=== PATIENT | male | born 1965 | race Caucasian/White ===

== ENCOUNTER 2022-05-28 09:26 | Emergency (ER) | payer BC, SELFPAY ==
[2022-05-28 09:52] VITALS: BP 142/79; PULSE 70; RESP 18; TEMP 36.8; O2SAT 96; BMI 35.4
--- NOTE | 2022-05-28 10:33 | ED_ITS ---
HPI - Abdominal Pain General Time Seen by Provider: 10:00 Date Seen: 05/28/22 Chief Complaint: Abdominal Pain Stated Complaint: Stomach cramps, nauseous Time Seen by Provider: 05/28/22 09:54 Source: patient, family and RN notes reviewed Mode of arrival: ambulatory Limitations: no limitations History of Present Illness HPI narrative: The patient is a very pleasant 57-year-old gentleman with a history of cardiac stents placed last year and no abdominal surgeries who comes to the emergency room for evaluation of abdominal pain. Patient notes that he awoke from sleep last night with abdominal pain that he describes is intense cramping. He had 1 episode of vomiting and seem to improve and went back to bed. He has had further episode of vomiting this morning. He does feel that he has been slightly bloated over the past week but has not been experiencing any diarrhea or constipation. He also denies fever but notes that when the pain is intense he does feel like he is chilled and does have some sweating. Patient has not experienced anything like this in the past. He has not noticed any blood in his stool and as previously noted no history of abdominal surgeries. He does admit that he has heartburn frequently. He also agrees that he had some discomfort in his upper substernal chest area earlier this morning not associated with shortness of breath. He has no pain there at this time. Patient did have a small nonbloody bowel movement earlier this morning. No diarrhea. MD elicited complaint: abdominal pain Pertinent past history: none Onset (ago): hour(s) Pain Consistency: intermittent Location: diffuse Severity: moderate Quality: cramping Associated symptoms: nausea and vomiting Related Data Home Medications Medication Instructions Recorded Confirmed atorvastatin 40 mg tablet mg 05/28/22 lisinopril 20 mg tablet mg 05/28/22 metoprolol tartrate 25 mg tablet mg 05/28/22 vilazodone 40 mg tablet (Viibryd) mg 05/28/22 Allergies Allergy/AdvReac Type Severity Reaction Status Date / Time No Known Drug Allergies Allergy Verified 05/28/22 09:59 Review of Systems Status of ROS Reports: 10 or more systems reviewed and unremarkable except as noted in History and below Const Denies: fever, change in weight or fatigue ENMT Denies: throat pain Cardio Reports: chest pain; Denies: shortness of breath with exertion Resp Denies: shortness of breath GI Reports: abdominal pain, nausea, vomiting and heartburn; Denies: coffee grounds in vomit Denies: painful urination Musculo Denies: back pain Endo Denies: fatigue PFSH [facility] Social History Smoking Status: Former smoker Do you use any of these nicotine containing products: None and E-Cigarettes Second hand tobacco smoke exposure: No How often do you have a drink containing alcohol: 2-3 times a week How many standard drinks containing alcohol do you have on a typical day: 1 or 2 How often do you have six or more drinks on one occasion: Never AUDIT-C Alcohol total score: 3 Non-prescribed substance use: denies use Exam Const: Vital Signs, click to edit/add: Vital Signs - 24 hr 05/28/22 09:52 05/28/22 14:04 Temperature 98.2 F Pulse Rate [Right Radial] 70 58 L Respiratory Rate 18 16 Blood Pressure [Ri ght Upper Arm] 142/79 H 117/56 L Pulse Oximetry 96 95 Documenting provider has reviewed patient's vital signs: yes Common normals: no apparent distress General appearance: cooperative and other (Mild discomfort occasionally.) Nutritional appearance: overweight HENMT: Common normals: normocephalic Head and scalp: normocephalic Eye: Common normals: PERRL General eye: normal appearance of both eyes Pupil: PERRL Resp: Common normals: normal respiratory effort and clear to auscultation bilaterally Auscultation: clear to auscultation bilaterally Cardio: Common normals: regular rate and regular rhythm Rate: regular rate Rhythm: regular rhythm GI: Common normals: soft to palpation Auscultation: hypoactive bowel sounds; no high-pitched bowel sounds Palpation: soft Other: Mild diffuse discomfort in the upper aspect of the abdomen. No rebound tenderness right lower quadrant. Extremity: Common normals: normal to inspection Skin: Common normals: no rashes or lesions noted General skin exam: no rashes or lesions noted Course Course Hospital Course: This appears to be sudden onset of abdominal discomfort almost colicky in nature per patient's description. It has included 2 episodes of vomiting. Possibilities include biliary colic, colitis, bowel obstruction, atypical angina . We will obtain an EKG, troponin as well as CBC, comprehensive panel and urinalysis. Plan with normal creatinine is to go forward with an abdominal and pelvis CT with contrast. Will give patient Toradol 15 mg IV and Zofran 4 mg IV. Reevaluation(s) Reevaluation #1: Patient is noted to have a normal white count of 9.52 with slightly elevated CRP of 1.1. Creatinine normal at 1.0 and potassium 4.4. Consultations Consultation #1: Surgical consultation with Dr. De Oliveira. Agrees with attempts at management with pain meds at home. Does suggest small-bowel follow-through with his primary MD if he has improvement. Vital Signs Vital signs: Initial Vital Signs Temperature 98.2 F 05/28/22 09:52 Temperature Source Temporal Artery Scan 05/28/22 09:52 Pulse Rate 70 05/28/22 09:52 Pulse Rhythm 05/28/22 09:52 Respiratory Rate 18 05/28/22 09:52 Blood Pressure 142/79 H 05/28/22 09:52 Blood Pressure Mean 100 05/28/22 09:52 Blood Pressure Position Sitting 05/28/22 09:52 Pulse Oximetry 96 05/28/22 09:52 Oxygen Delivery Method 05/28/22 09:52 Vital Signs Temperature 98.2 F 05/28/22 09:52 Pulse Rate 70 05/28/22 09:52 Respiratory Rate 18 05/28/22 09:52 Blood Pressure 142/79 H 05/28/22 09:52 Pulse Oximetry 96 05/28/22 09:52 Temperature 98.2 F 05/28/22 09:52 Pulse Rate 58 L 05/28/22 14:04 Respiratory Rate 16 05/28/22 14:04 Blood Pressure 117/56 L 05/28/22 14:04 Pulse Oximetry 95 05/28/22 14:04 MDM - Abdominal Pain MDM Narrative Medical decision making narrative: 1. Partial small bowel obstruction-no evidence of mass, colitis, enteritis for reason for obstruction. Following Toradol and Zofran IV as well as 1 L of saline patient is feeling better and able to tolerate water without difficulty. I did consult with our surgeon and at this time patient will be discharged home. Oxycodone 5 mg 1/2-1 tab may be utilized for pain control every 6 hours as needed. Would recommend a stool softener such as Colace as he is surely to be susceptible to constipation. Zofran ODT 4 mg may be utilized for nausea as needed. 2. GERD-patient does have a history of heartburn. He is complaining of some heartburn here. We have ruled him out in terms of negative EKGs and negative troponins. Will give some Maalox at this time. 2. Disposition-home. Patient will return for fever, increased vomiting or increasing pain. If he is improved our surgeon suggest a small bowel polyp follow-through as an outpatient with his primary MD. Differential Diagnosis Differential diagnosis: Likely abdominal pain, acute appendicitis, constipation, diverticulitis, gastroenteritis, pancreatitis and small bowel obstruction Medical Records Attestation: I reviewed the patient's medical records. Lab Data Attestation: I reviewed the patient's lab results. Lab results narrative: White count is reassuring, troponin is negative. CRP slightly elevated at 1.1. Normal creatinine. Labs: Lab Results 05/28/22 05/28/22 05/28/22 Range/Units 10:40 10:40 10:40 WBC 9.52 (4.50-11.00) K/uL RBC 5.69 (4.30-5.90) m/uL Hgb 15.6 (13.5-17.5) gm/dL Hct 46.9 (37.0-53.0) % MCV 82 (80-100) fL MCH 27 (26-34) pg MCHC 33 (32-36) gm/dL RDW Coeff of Hoa 13.4 (11.5-15.5) % Plt Count 245 (140-440) K/uL Neut % (Auto) 72.8 H (42.0-72.0) % Lymph % (Auto) 12.4 L (20-44) % [place] % (Auto) 12.9 H (0.0-11.0) % Eos % (Auto) 1.5 (0.0-7.0) % Baso % (Auto) 0.3 (0.0-3.0) % Neut # (Auto) 6.90 (1.7-7.0) K/uL Lymph # (Auto) 1.20 (0.90-2.90) K/uL [place] # (Auto) 1.20 H (0.00-0.90) K/UL Eos # (Auto) 0.14 (0.00-0.50) K/uL Baso # (Auto) 0.03 (0.00-0.30) K/uL Abs Immat Gran (auto) 0.01 (0.00-0.30) K/uL Sodium 141 (135-149) mmol/L Potassium 4.4 (3.6-5.1) mmol/L Chloride 106 (96-114) mmol/L Carbon Dioxide 27 (20-32) mmol/L BUN 18 (7-30) mg/dL Creatinine 1.0 (0.5-1.5) mg/dL Estimated Creat Clear 82.48 Glucose 114 (60-115) mg/dL Calcium 9.4 (8.4-10.6) mg/dL Total Bilirubin 0.8 (0.1-1.5) mg/dL AST 28 (12-35) U/L ALT 23 (4-50) U/L Alkaline Phosphatase 79 (40-150) U/L Troponin I < 0.01 L (0.01-0.04) ng/mL C-Reactive Protein 1.1 H (0.5-1.0) mg/dL Total Protein 7.6 (6.0-8.3) g/dL Albumin 4.7 (3.3-5.0) g/dL Urine Color Yellow (Yellow) Urine Appearance Clear (Clear) Urine pH 8.5 (5.0-8.5) Ur Specific Logan 1.015 (1.000-1.030) Urine Protein 1+ A (Negative) Urine Glucose (UA) Negative (Negative) Urine Ketones Trace A (Negative) Urine Blood Negative (Negative) Urine Nitrite Negative (Negative) Urine Bilirubin 1+ A (Negative) Urine Urobilinogen 2.0 A (0.2-1.0) Ur Leukocyte Esterase Negative (Negative) Urine RBC 0-2 (0-2) Urine WBC 0-2 (0-5) Ur Squamous Epith Cells Few (None-Few) Urine Bacteria None (None) Urine Mucus Few A (None) Urine Trichomonas TNP POC Troponin I (0.01-0.04) ng/ml 05/28/22 Range/Units 15:40 WBC (4.50-11.00) K/uL RBC (4.30-5.90) m/uL Hgb (13.5-17.5) gm/dL Hct (37.0-53.0) % MCV (80-100) fL MCH (26-34) pg MCHC (32-36) gm/dL RDW Coeff of Hoa (11.5-15.5) % Plt Count (140-440) K/uL Neut % (Auto) (42.0-72.0) % Lymph % (Auto) (20-44) % [place] % (Auto) (0.0-11.0) % Eos % (Auto) (0.0-7.0) % Baso % (Auto) (0.0-3.0) % Neut # (Auto) (1.7-7.0) K/uL Lymph # (Auto) (0.90-2.90) K/uL [place] # (Auto) (0.00-0.90) K/UL Eos # (Auto) (0.00-0.50) K/uL Baso # (Auto) (0.00-0.30) K/uL Abs Immat Gran (auto) (0.00-0.30) K/uL Sodium (135-149) mmol/L Potassium (3.6-5.1) mmol/L Chloride (96-114) mmol/L Carbon Dioxide (20-32) mmol/L BUN (7-30) mg/dL Creatinine (0.5-1.5) mg/dL Estimated Creat Clear Glucose (60-115) mg/dL Calcium (8.4-10.6) mg/dL Total Bilirubin (0.1-1.5) mg/dL AST (12-35) U/L ALT (4-50) U/L Alkaline Phosphatase (40-150) U/L Troponin I (0.01-0.04) ng/mL C-Reactive Protein (0.5-1.0) mg/dL Total Protein (6.0-8.3) g/dL Albumin (3.3-5.0) g/dL Urine Color (Yellow) Urine Appearance (Clear) Urine pH (5.0-8.5) Ur Specific Logan (1.000-1.030) Urine Protein (Negative) Urine Glucose (UA) (Negative) Urine Ketones (Negative) Urine Blood (Negative) Urine Nitrite (Negative) Urine Bilirubin (Negative) Urine Urobilinogen (0.2-1.0) Ur Leukocyte Esterase (Negative) Urine RBC (0-2) Urine WBC (0-5) Ur Squamous Epith Cells (None-Few) Urine Bacteria (None) Urine Mucus (None) Urine Trichomonas POC Troponin I 0.00 L (0.01-0.04) ng/ml Imaging Data CT scan - abdomen: Attestation: I have reviewed the pertinent imaging results. My impression: Increased in appearance of the small intestine with multiple air-fluid levels. Radiologist's impression: Partial small-bowel obstruction with out cause identified. ECG Data Attestation: I personally reviewed and interpreted this ECG as follows: (Sinus bradycardia at a rate of [address] or T-wave changes. Normal QT and CA interval. Second EKG by my read shows a rate of 59 and sinus bradycardia. No acute ST or T-wave changes. Continues to have normal QT and CA intervals.) ECG interpretation date: 05/28/22 Discharge Plan Discharge Clinical Impression: Small bowel obstruction, Heartburn Patient Disposition: Home, Self-Care Condition: Improved Additional Instructions: For pain, oxycodone may be use 1/2 to 2 tabs every 4-6 hours as needed. Zofran ODT may be used for nausea. This will make you constipated so I also want you to start on a stool softener called Colace. We will have you do clear liquids for the 1st 24 hours of treatment and then you may advance to soft foods. If however you started experiencing fever chills, persistent vomiting and worsening symptoms please return to the emergency room. If symptoms resolve you will need to follow-up with your regular doctor and be scheduled for a small-bowel follow- through. You may use Maalox or Tums as needed for heartburn. Prescriptions: No Action atorvastatin 40 mg tablet 0RF Label Comments: TAKE 1 TABLET BY MOUTH AT BEDTIME lisinopril 20 mg tablet 0RF Label Comments: TAKE 1 TABLET BY MOUTH ONCE DAILY metoprolol tartrate 25 mg tablet 0RF Viibryd 40 mg tablet 0RF Follow Up/Referrals: Provider,Not a Local [Primary Care Provider] - Stand Alone Forms: [employer] Info Instructions
[2022-05-28 10:53] LABS: Appearance Urine Clear (Clear); Bilirubin Urine 1+ (Negative); Blood Urine Negative (Negative); Color Urine Yellow (Yellow); Glucose Urine Negative (Negative); Ketones Urine Trace (Negative); Leukocyte Esterase Urine Negative (Negative); Nitrite Urine Negative (Negative); Protein Urine 1+ (Negative); Specific Gravity Urine 1.015 (1.000-1.030); pH Urine 8.5 (5.0-8.5)
[2022-05-28] MEDS: KETOROLAC 15 MG/ML inj IVP (10:59)
[2022-05-28] MEDS: ONDANSETRON 2 MG/ML inj 4 MG IVP (10:59)
[2022-05-28 11:02] LABS: Basophils Absolute Auto 0.03 K/uL (0.00-0.30); Basophils Percent Auto 0.3 % (0.0-3.0); Eosinophils Absolute Auto 0.14 K/uL (0.00-0.50); Eosinophils Percent Auto 1.5 % (0.0-7.0); Hematocrit 46.9 % (37.0-53.0); Hemoglobin* 15.6 gm/dL (13.5-17.5); Immature Granulocytes Abs Auto 0.01 K/uL (0.00-0.30); Lymphocytes Percent Auto 12.4 % (20-44); Mean Corpuscular HGB Conc 33 gm/dL (32-36); Mean Corpuscular Hemoglobin 27 pg (26-34); Mean Corpuscular Volume 82 fL (80-100); Monocytes Percent Auto 12.9 % (0.0-11.0); Neutrophils Percent Auto 72.8 % (42.0-72.0); Platelet Count* 245 K/uL (140-440); RDW Coefficient of Variation % 13.4 % (11.5-15.5); Red Blood Count 5.69 m/uL (4.30-5.90); White Blood Count* 9.52 K/uL (4.50-11.00)
[2022-05-28 11:06] LABS: Slide Review Reflex No
[2022-05-28 11:21] LABS: Albumin* 4.7 g/dL (3.3-5.0); Chloride* 106 mmol/L (96-114)
[2022-05-28 11:22] LABS: Potassium* 4.4 mmol/L (3.6-5.1); Sodium* 141 mmol/L (135-149)
[2022-05-28 11:24] LABS: Est. Creatinine Clearance* 82.48; Estimated Glomerular Filt Rate 88.33
[2022-05-28 11:25] LABS: Alanine Aminotransferase* 23 U/L (4-50); Alkaline Phosphatase* 79 U/L (40-150); Aspartate Amino Transferase* 28 U/L (12-35); Bilirubin Total* 0.8 mg/dL (0.1-1.5); Blood Urea Nitrogen* 18 mg/dL (7-30); Calcium* 9.4 mg/dL (8.4-10.6); Carbon Dioxide* 27 mmol/L (20-32); Glucose* 114 mg/dL (60-115); Total Protein* 7.6 g/dL (6.0-8.3)
[2022-05-28 11:28] LABS: C Reactive Protein* 1.1 mg/dL (0.5-1.0)
[2022-05-28 11:40] LABS: Troponin I* < 0.01 ng/mL (0.01-0.04)
--- NOTE | 2022-05-28 11:40 | CRLHL7_ITS ---
For Patients: As a result of the Century Cures Act, medical imaging exams and procedure reports are released immediately into your electronic medical record. You may view this report before your referring provider. If you have questions, please contact your health care provider. INDICATION: Abdominal pain and vomiting. TECHNIQUE: CT abdomen and pelvis acquired with 98 cc Isovue 370 IV contrast. COMPARISON: None. FINDINGS: Lower chest: Unremarkable. Liver: Unremarkable. Normal in size and attenuation. No suspicious masses. Gallbladder and bile ducts: Unremarkable. No stones or inflammation. No biliary dilatation. Pancreas: Unremarkable. No mass or inflammation. Spleen: Unremarkable. Normal in size. No masses. Adrenal glands: A 1 cm right adrenal nodule very likely represents a benign adenoma. Kidneys: Unremarkable. No suspicious masses, stones, or hydronephrosis. GI tract: A small bowel obstruction is present and appears partial. A general area of transition is in the anterior right abdomen without an obvious cause for obstruction. Colon is decompressed and unremarkable. Normal appendix. Vasculature: Abdominal aorta is normal in caliber. Mesenteric arteries are patent. Lymph nodes: No lymphadenopathy. Peritoneum/Abdominal Wall: Mild congestive changes in the mesentery associated with the distended small bowel loops. No sign of mass or infiltration. No free air or significant free fluid. Pelvis: Unremarkable. Bones: Multilevel degenerative disc spondylosis was small posterior disc protrusions in the lower lumbar spine. IMPRESSION: Partial small bowel obstruction is present without an apparent cause for this obstruction. Please note that all CT scans at this facility use dose modulation, iterative reconstruction, and/or weight-based dosing when appropriate to reduce radiation dose to as low as reasonably achievable. Dictated by Rishi Gaspar MD @ 05/28/2022 1:43:18 PM (Electronically Signed)
[2022-05-28 12:34] LABS: RBC Urine 0-2 (0-2); Squamous Epithelial Cell Urine Few (None-Few); WBC Urine 0-2 (0-5)
[2022-05-28 12:35] LABS: Mucus Urine Few
[2022-05-28 14:04] VITALS: BP 117/56; PULSE 58; RESP 16; O2SAT 95
[2022-05-28] MEDS: MAG HYDROX/ALUMINUM HYD/SIMETH 30 ML ORAL.SUSP PO (16:28)
[2022-05-28 16:36] VITALS: BP 125/63; PULSE 61; RESP 18; TEMP 36.6; O2SAT 95
== END 2022-05-28 16:39 | disposition home or self-care (01) ==
PROVIDERS: Emergency Provider Family Medicine
DX: K56.609 Unspecified intestinal obstruction, unspecified as to partial versus complete obstruction (principal); R12 Heartburn; Z95.5 Presence of coronary angioplasty implant and graft
CPT/HCPCS: 36415; 74177; 80053; 81003; 81015; 84484; 85025; 86140; 93005; 96374; 96375; 99284; 99285; A9270; J1885; J2405; Q9967

== ENCOUNTER 2023-07-06 19:59 | Outpatient (CLI) | payer BC, SELFPAY | END 2023-07-06 20:00 | disposition home or self-care (01) | LOC: LKVREF 20:00 | PROVIDERS: Visit Provider Physician Assistant | DX: R21 Rash and other nonspecific skin eruption (principal) | CPT/HCPCS: 86618 ==